=== PATIENT | male | born 1960 | race Two or more races ===

== ENCOUNTER 2018-04-20 13:29 | Emergency (ER) | payer OTHER ==
[~2018-04-20] VITALS: Ht 182.9 cm; Wt 163.3 kg
[2018-04-20] MEDS ORDERED: LOSARTAN-HCTZ1 EACH (13:31)
== END 2018-04-20 18:14 | disposition home or self-care (01) ==
LOC: ER 13:29
DX: N20.0 Calculus of kidney (principal); R10.31 Right lower quadrant pain